=== PATIENT | male | born 1990 | race African-American/Black ===

== ENCOUNTER 2024-05-01 12:23 | Emergency (ER) | payer OTHER, SELFPAY ==
[2024-05-01 12:30] VITALS: BP 146/97; PULSE 89; TEMP 37.2; O2SAT 100; BMI 25.4
--- NOTE | 2024-05-01 13:07 | ED_ITS ---
HPI - Dental/Oral General Chief complaint: Dental/Oral Stated complaint: FACIAL PAIN/TOOTH PAIN Time Seen by Provider: 05/01/24 12:48 Source: patient Mode of arrival: walk-in Limitations: no limitations History of Present Illness HPI Narrative: Patient is coming to the ER with a dental pain mostly left lower dental, this is a second time he has been to the ER for the same complaint he mentioned that he has not been able to get to a dental care because he need root canal treatment and apparently he was referred to dentist but his insurance is not covering that The patient is looking for another dentist Related Data Previous Rx's ?Medication ?Instructions ?Recorded amoxicillin 875 mg-potassium 1 tab PO Q12H #14 tabs 05/01/24 clavulanate 125 mg tablet ibuprofen 600 mg tablet 600 mg PO TID PRN pain #20 tabs 05/01/24 Allergies Allergy/AdvReac Type Severity Reaction Status Date / Time No Known Drug Allergies Allergy Verified 05/01/24 12:29 Review of Systems ROS Status of ROS 10 or more systems reviewed and unremark able except as noted in history and below Exam Narrative Exam Narrative: Dental exam showed that the patient have multiple decayed tooth although he did had a previous work done and multiple tooth but he have a the tooth #19 it decayed with a hole in it there is tenderness upon palpation Nurses notes and vital signs reviewed and patient is not hypoxic. General: Well-appearing and in no apparent distress. Skin: Warm, dry, no pallor noted. No rash. Head: Normocephalic, atraumatic. Neck: Supple, non-tender. Eye: Pupils are equal, round and EOMI. No scleral icterus. Ears, Nose, Mouth, and Throat: TM are clear, no nasal mucosal hypertrophy. Oral mucosa is moist, no posterior oropharynx erythema, uvula is mid-line Cardiovascular: Regular Rate and Rhythm without murmur, gallop or rub. Respiratory: No accessory muscle use or respiratory distress. Lungs are clear to auscultation, no wheezing, rales or rhonchi Chest Wall: no tenderness Back: No midline thoracic or lumbar vertebral tenderness. No CVA tenderness Musculoskeletal: normal ROM, no calf or popliteal tenderness, no lower extremity edema/swelling GI: Abdomen is soft, non-distended. Normal bowel sounds. No masses appreciated. No tenderness to palpation. No rebound, guarding, or rigidity noted. Neurological: A&O x4. No cranial nerve dysfunction observed. No truncal ataxia. Moves all extremities. Sensation intact. Psychiatric: Cooperative and interactive. Normal mood and affect. Constitutional Vital Signs, click to edit/add: Last Vital Signs Temp 98.9 F 05/01/24 12:30 Pulse 89 05/01/24 12:30 Resp 20 05/01/24 12:30 BP 146/97 H 05/01/24 12:30 Pulse Ox 100 05/01/24 12:30 O2 Del Method Room Air 05/01/24 12:30 Course Vital Signs Vital signs: Vital Signs Temperature 98.9 F 05/01/24 12:30 Pulse Rate 89 05/01/24 12:30 Respiratory Rate 20 05/01/24 12:30 Blood Pressure 146/97 H 05/01/24 12:30 Pulse Oximetry 100 05/01/24 12:30 Oxygen Delivery Method Room Air 05/01/24 12:30 Temperature 98.9 F 05/01/24 12:30 Pulse Rate 89 05/01/24 12:30 Respiratory Rate 20 05/01/24 12:30 Blood Pressure 146/97 H 05/01/24 12:30 Pulse Oximetry 100 05/01/24 12:30 Oxygen Delivery Method Room Air 05/01/24 12:30 MDM - Dental/Oral MDM Narrative Medical decision making narrative: The patient presentation is mostly secondary to dental infection He was covered with Augmentin in addition to ibuprofen for pain control and referred to the dentist in the outpatient The patient is to follow up with primary care physician in next 2-3 days or to return to the emergency department should any of the signs or symptoms worsen or new symptoms develop. The patient agrees with the following Diagnosis and Treatment plan and the patient will be discharged home. Discharge Plan Discharge Stand Alone Forms: Work/School Release, Portal Instructions Chief Complaint: Dental/Oral Clinical Impression: Toothache Patient Disposition: Home, Self-Care Time of Disposition Decision: 12:57 Condition: Good Prescriptions / Home Meds: New amoxicillin-pot clavulanate 875-125 mg tablet 1 tab PO Q12H Qty: 14 0RF ibuprofen 600 mg tablet 600 mg PO TID PRN (Reason: pain) Qty: 20 0RF Print Language: Polish Instructions: Toothache (ED) Referrals: Physician,Non-Staff, MD [Primary Care Provider] - 1 week
== END 2024-05-01 13:22 | disposition home or self-care (01) ==
PROVIDERS: Emergency Provider Emergency Medicine
DX: K08.89 Other specified disorders of teeth and supporting structures (principal)
CPT/HCPCS: 99283